=== PATIENT | female | born 1995 | race African-American/Black ===

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

== ENCOUNTER 2017-02-01 11:04 | Emergency (ER) | payer SELFPAY ==
[~2017-02-01] VITALS: Ht 152.4 cm; Wt 43.5 kg
--- NOTE | 2017-02-01 12:45 | RAD ---
Chest, 2 views, 02/01/2017: History: Shortness of breath, chest pain The heart size is normal. The lungs are clear. There is no evidence of pleural fluid. IMPRESSION: No acute cardiopulmonary abnormality is detected.
--- NOTE | 2017-02-01 12:56 | PHYS DOC ---
Past Medical History Past Medical History: Asthma Past Surgical History: No Surgical History Additional Information: 2 BLACK & MILDS A DAY Alcohol Use: None Drug Use: None Adult General Chief Complaint Chief Complaint: SHORTNESS OF BREATH HPI HPI Patient is a 21 year old female who presents with shortness of breath. The patient states she woke from sleep & felt short of breath. She states her chest felt tight. This sensation was brief & resolved spontaneously with no symptoms at time of my interview with her. She denies fevers/chills, cough, wheezing, nausea, diaphoresis, lower extremity pain/swelling. She denies any known past medical history, no asthma. She smokes cigarettes daily. Denies use of control, recent travel, immobilization, or surgery. No history of DVT/PE. Review of Systems Review of Systems Constitutional: Denies fever or chills HENT: Denies nasal congestion or sore throat Respiratory: Denies cough, reports shortness of breath Cardiovascular: Denies chest pain or edema GI: Denies abdominal pain, nausea, vomiting Musculoskeletal: Denies back pain or joint pain Integument: Denies rash or skin lesions Neurologic: Denies headache Allergies Allergies Allergies Coded Allergies Type Severity Reaction Last Updated Verified No Known Drug Allergies 05/16/16 No Physical Exam Physical Exam Constitutional: Well developed, well nourished, no acute distress, non-toxic appearance. HENT: Normocephalic, atraumatic, bilateral external ears normal, oropharynx moist, nose normal. Eyes: conjunctiva normal, no discharge. Neck: supple, no stridor. Cardiovascular: RRR, no murmurs, no edema. Lungs & Thorax: LCTAB, no wheezing, no respiratory distress. Abdomen: soft, nontender, nondistended. Skin: Warm, dry, no erythema, no rash. Back: No tenderness. Extremities: No tenderness, no edema. no calf tenderness or swelling. Neurologic: Alert and oriented X 3, no focal deficits noted. Psychologic: Affect normal, judgement normal, mood normal. Current Patient Data Vital Signs Vital Signs Date Time Temp Pulse Resp B/P Pulse Ox O2 Delivery O2 Flow Rate FiO2 02/01/17 13:08 78 22 102/61 98 Room Air 02/01/17 11:54 98.8 98.8 EKG EKG [] Radiology/Procedures Radiology/Procedures PROCEDURE: CHEST PA & LATERAL Chest, 2 views, 02/01/2017: History: Shortness of breath, chest pain The heart size is normal. The lungs are clear. There is no evidence of pleural fluid. IMPRESSION: No acute cardiopulmonary abnormality is detected. DICTATED and SIGNED BY: MERE NELSON MD DATE: 02/01/17 1242[] Course & Med Decision Making Course & Med Decision Making Pertinent Labs and Imaging studies reviewed. (See chart for details) The patient presents with brief episode of shortness of breath. Today vitals are stable, clear breath sounds bilaterally, normal CXR. Patient remained asymptomatic. Recommend follow up with primary care if symptoms recur. Come back for severe chest pain or shortness of breath, or any otherwise worsening condition. Discharged home in stable condition. [] Dragon Disclaimer Dragon Disclaimer This electronic medical record was generated, in whole or in part, using a voice recognition dictation system. Departure Departure Impression: Primary Impression: Dyspnea Disposition: 01 HOME, SELF-CARE Condition: STABLE Referrals: ARMIDA HILL MD (PCP) Patient Instructions: Shortness of Breath, [id number] Additional Instructions: You were seen in the emergency department today for shortness of breath. Your oxygen level was normal & your chest x-ray was normal. Please follow up with your primary care doctor if symptoms come back. Come back to the ER for severe chest pain or shortness of breath, or otherwise worsening condition. JENNIFER ENCARNACION MD Feb 01, 2017 12:56
[2017-02-01 13:08] VITALS: BP 102/61
== END 2017-02-01 13:08 | disposition home or self-care (01) ==
LOC: ER 11:04
DX: R06.00 Dyspnea, unspecified (principal); R06.02 Shortness of breath; R07.89 Other chest pain; J45.909 Unspecified asthma, uncomplicated; F17.210 Nicotine dependence, cigarettes, uncomplicated
CPT/HCPCS: 71020; 99284-25

== ENCOUNTER 2017-07-10 07:35 | Emergency (ER) | payer SELFPAY ==
[~2017-07-10] VITALS: Ht 152.4 cm; Wt 44.5 kg
[~2017-07-10 07:35] MED LIST changes: -TRAM-29 PO; +TRAM-48 PO
[2017-07-10 07:59] VITALS: BP 103/54
--- NOTE | 2017-07-10 08:10 | PHYS DOC ---
Past Medical History Past Medical History: Asthma Past Surgical History: No Surgical History Alcohol Use: None Drug Use: Marijuana Adult General Chief Complaint Chief Complaint: BREAST PROBLEM HPI HPI Patient is a 21 year old female who presents complaining of a painless lump on the left breast that she has had for "months". Patient denies any drainage from the breast. Denies any chance she is . She states she is not sexually active. Patient denies any family upper breast cancer. Denies any redness to the area. Review of Systems Review of Systems Constitutional: Denies fever or chills [] Musculoskeletal: Denies back pain or joint pain [] Integument: Lump to the left breast Neurologic: Denies headache, focal weakness or sensory changes [] Allergies Allergies Allergies Coded Allergies Type Severity Reaction Last Updated Verified No Known Drug Allergies 05/16/16 No Physical Exam Physical Exam Constitutional: Well developed, well nourished, no acute distress, non-toxic appearance. [] Skin: Left breast with a tiny palpable mass approximately 3 x 3 cm at the 1400 position. There is no redness to the area, no dimpling, no nipple discharge. Back: No tenderness, no CVA tenderness. [] Extremities: No tenderness, no cyanosis, no clubbing, ROM intact, no edema. [] Neurologic: Alert and oriented X 3, normal motor function, normal sensory function, no focal deficits noted. [] Psychologic: Affect normal, judgement normal, mood normal. [] Current Patient Data Vital Signs Vital Signs Date Time Temp Pulse Resp B/P (MAP) Pulse Ox O2 Delivery O2 Flow Rate FiO2 07/10/17 07:59 98.7 69 16 99 Room Air 98.7 EKG EKG [] Radiology/Procedures Radiology/Procedures [] Course & Med Decision Making Course & Med Decision Making Pertinent Labs and Imaging studies reviewed. (See chart for details) Patient has a painless lump on the left breast that she has had for months. Denies any chance she is . She has no family history of breast cancer. I recommended she follows up with her PCP or [facility] and they can do a mammogram to rule out any malignancy. Dragon Disclaimer Dragon Disclaimer This electronic medical record was generated, in whole or in part, using a voice recognition dictation system. Departure Departure Impression: Primary Impression: Lump of left breast Disposition: HOME, SELF-CARE Condition: STABLE Referrals: ARMIDA HILL MD (PCP) MICHELE ZUNIGA MD follow up in the next 7 days Patient Instructions: Breast Cyst Additional Instructions: You were seen with the lump in the left breast that you've had for months. Please contact your primary care doctor or the provided [facility] in the course of this week or next week and follow-up with them. They might consider doing a mammogram as an outpatient. SIMONE BOWSER APRN Jul 10, 2017 08:10
== END 2017-07-10 08:27 | disposition home or self-care (01) ==
LOC: ER 07:35
DX: N63 Unspecified lump in breast (principal); J45.909 Unspecified asthma, uncomplicated
CPT/HCPCS: 99281